=== PATIENT | female | born 1955 | race Caucasian/White ===

== ENCOUNTER 2017-01-02 22:28 | Emergency (ER) | payer OTHER | END 2017-01-02 23:15 | disposition home or self-care (01) | LOC: ER 22:28 | DX: Z47.81 Encounter for orthopedic aftercare following surgical amputation (principal); Z89.611 Acquired absence of right leg above knee ==

== ENCOUNTER 2017-01-11 16:51 | Emergency (ER) | payer OTHER | END 2017-01-11 20:21 | disposition home or self-care (01) | LOC: ER 16:51 | DX: T81.89XA Other complications of procedures, not elsewhere classified, initial encounter (principal); E78.5 Hyperlipidemia, unspecified; E11.9 Type 2 diabetes mellitus without complications; E66.01 Morbid (severe) obesity due to excess calories; Z79.899 Other long term (current) drug therapy; Z88.8 Allergy status to other drugs, medicaments and biological substances | CPT/HCPCS: 36415 ==

== ENCOUNTER 2017-02-11 22:49 | Emergency (ER) | payer OTHER | END 2017-02-12 00:35 | disposition home or self-care (01) | LOC: ER 22:49 | DX: K59.00 Constipation, unspecified (principal); R11.2 Nausea with vomiting, unspecified; E11.9 Type 2 diabetes mellitus without complications; Z79.82 Long term (current) use of aspirin; Z79.899 Other long term (current) drug therapy; Z88.8 Allergy status to other drugs, medicaments and biological substances | CPT/HCPCS: 96372; J2550 ==

== ENCOUNTER 2017-02-13 21:48 | Emergency (ER) | payer OTHER | END 2017-02-14 03:35 | disposition short-term general hospital (02) | LOC: ER 21:48 | DX: K56.60 Unspecified intestinal obstruction (principal); N13.2 Hydronephrosis with renal and ureteral calculous obstruction; E11.9 Type 2 diabetes mellitus without complications; E66.01 Morbid (severe) obesity due to excess calories; F17.210 Nicotine dependence, cigarettes, uncomplicated; Z88.8 Allergy status to other drugs, medicaments and biological substances; Z79.82 Long term (current) use of aspirin; Z79.899 Other long term (current) drug therapy | CPT/HCPCS: 36415; 96361; 96374 ==

== ENCOUNTER 2017-02-20 22:44 | Emergency (ER) | payer OTHER | END 2017-02-21 00:35 | disposition short-term general hospital (02) | LOC: ER 22:44 | DX: K63.89 Other specified diseases of intestine (principal); E11.9 Type 2 diabetes mellitus without complications; F17.210 Nicotine dependence, cigarettes, uncomplicated; E66.01 Morbid (severe) obesity due to excess calories; Z68.41 Body mass index [BMI] 40.0-44.9, adult; Z79.82 Long term (current) use of aspirin; Z79.899 Other long term (current) drug therapy; Z88.8 Allergy status to other drugs, medicaments and biological substances | CPT/HCPCS: 36415; 96374; 96375; Q9963; Q9967 ==